=== PATIENT | female | born 1975 | race Caucasian/White ===

== ENCOUNTER 2020-11-12 19:10 | Emergency (ER) | payer SELFPAY ==
[~2020-11-12] VITALS: Ht 167.6 cm; Wt 61.5 kg
[2020-11-12 19:15] VITALS: BP 162/198
--- NOTE | 2020-11-12 19:52 | NUR ---
Nurse went to bedside to get patient comfortable. Pt currently denying SI but believes she is having an anxiety attack and unable to calm down independently. Pt states that she is going through a situational crisis currently with , who is currently having an affair, and they are in the process of getting a divorce. Pt states that the mistress and are causing her anxiety as well as some trauma. Pt is crying in bed, ressurance was given by nurse. Pt waiting to be evaulted by . Pt does state that with her first divorce she was prescribed Ativan, which has prooved effective in the past. Addendum: 11/12/20 at 2003 by [place]ASIA Pt also stated that she is afraid of breaking things arounds home if she didn't come into the ER.
--- NOTE | 2020-11-12 19:57 | NUR ---
MD Bella at bedside.
[2020-11-12] MEDS ORDERED: LORazepam 1 MG tablet PO ONE (20:15)
[2020-11-12] MEDS ORDERED: LORA-269 PO (21:38)
== END 2020-11-12 21:48 | disposition home or self-care (01) ==
LOC: ER 19:11
DX: F41.9 Anxiety disorder, unspecified (principal); F32.9 Major depressive disorder, single episode, unspecified; E11.9 Type 2 diabetes mellitus without complications; Z79.899 Other long term (current) drug therapy
CPT/HCPCS: 99283